=== PATIENT | male | born 1960 | race African-American/Black ===

== ENCOUNTER → 2018-01-28 | Outpatient (CLI) | payer MEDICARE, BC | LOC: MHCPAIN 11:18 | DX: G89.29 Other chronic pain (principal); M47.817 Spondylosis without myelopathy or radiculopathy, lumbosacral region; M53.3 Sacrococcygeal disorders, not elsewhere classified; M50.90 Cervical disc disorder, unspecified, unspecified cervical region | CPT/HCPCS: G0463 ==

== ENCOUNTER → 2018-02-07 | Outpatient (CLI) | payer MEDICARE, BC | LOC: MHCPAIN 11:00 | DX: M47.817 Spondylosis without myelopathy or radiculopathy, lumbosacral region (principal); M51.36 Other intervertebral disc degeneration, lumbar region | CPT/HCPCS: J1040; Q9967 ==

== ENCOUNTER → 2018-02-13 | Outpatient (CLI) | payer MEDICARE, BC | LOC: MHCPAIN 14:18 | DX: M47.817 Spondylosis without myelopathy or radiculopathy, lumbosacral region (principal); M46.96 Unspecified inflammatory spondylopathy, lumbar region | CPT/HCPCS: J1040; J2250; J3010; Q9967 ==

== ENCOUNTER → 2018-04-16 | Outpatient (CLI) | payer BC, MEDICARE | LOC: MHCPAIN 14:23 | DX: G89.29 Other chronic pain (principal); M47.817 Spondylosis without myelopathy or radiculopathy, lumbosacral region; M53.3 Sacrococcygeal disorders, not elsewhere classified; M50.90 Cervical disc disorder, unspecified, unspecified cervical region | CPT/HCPCS: G0463 ==

== ENCOUNTER → 2018-04-25 | Outpatient (CLI) | payer BC, MEDICARE | LOC: MHCPAIN 08:01 | DX: M50.90 Cervical disc disorder, unspecified, unspecified cervical region (principal) ==